=== PATIENT | male | born 1970 | race Caucasian/White ===

== ENCOUNTER 2017-10-13 10:22 | Emergency (ER) | payer BC ==
[2017-10-13 11:22] VITALS: BP 136/96
--- NOTE | 2017-10-13 12:11 | UC ---
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 ---full rom - History of Current Complaint Chief Complaint: UCUpperExtremity Stated Complaint: LEFT SHOULDER PAIN Time Seen by Provider: 10/13/17 12:03 Hx Obtained From: Patient Onset/Duration: Gradual Onset, Lasting Weeks - 12, Still Present Timing: Constant Pain Intensity: 7 Pain Scale Used: 0-10 Numeric Character: Aching, Throbbing Aggravating Factor(s): Movement Alleviating Factor(s): Nothing - numbing cream and ibuprofen Associated Signs And Symptoms: Positive: Negative Related History: Dominant Hand Right - Allergies/Home Medications Allergies/Adverse Reactions: Allergies Allergy/AdvReac Type Severity Reaction Status Date / Time No Known Allergies Allergy Verified 10/13/17 11:14 PMH/Surg Hx/FS Hx/Imm Hx Previously Healthy: Yes - Surgical History Surgical History: None - Family History Known Family History: Positive: None - Social History Occupation: Employed Full-time Lives: With Family Alcohol Use: Weekly Substance Use Type: Marijuana Substance Use Comment - Amount & Last Used: OCCASSIONALLY Smoking Status (MU): Heavy Every Day Tobacco Smoker Type: Cigarettes Amount Used/How Often: 1 PK DAILY Cessation Counseling: Counseled 3+Min - 10 Min Review of Systems Constitutional: Negative Skin: Negative Eyes: Negative ENT: Negative Respiratory: Negative Cardiovascular: Negative Gastrointestinal: Negative Genitourinary: Negative Motor: Negative Neurovascular: Negative Musculoskeletal: Arthralgia - left shoulder, Myalgia - left side of neck Neurological: Negative Psychological: Negative Is Patient Immunocompromised?: No All Other Systems Reviewed And Are Negative: Yes Physical Exam Triage Information Reviewed: Yes Appearance: Well-Appearing, No Pain Distress, Well-Nourished Vital Signs: Initial Vital Signs Temp 97.6 F 10/13/17 11:14 Pulse 87 10/13/17 11:14 Resp 16 10/13/17 11:14 BP 136/96 10/13/17 11:14 Pulse Ox 99 10/13/17 11:14 Vital Signs Reviewed: Yes Eye Exam: Normal Eyes: Positive: Conjunctiva Clear ENT Exam: Normal ENT: Positive: Normal ENT inspection, Hearing grossly normal. Negative: Trismus , Muffled voice, Hoarse voice Dental Exam: Normal Neck exam: Normal Neck: Positive: Supple, Nontender, Other: - muscles left side of neck Respiratory Exam: Normal Respiratory: Positive: Chest non-tender, Lungs clear, Normal breath sounds, No respiratory distress, No accessory muscle use Cardiovascular Exam: Normal Cardiovascular: Positive: RRR, No Murmur, Pulses Normal, Brisk Capillary Refill Musculoskeletal Exam: Normal Musculoskeletal: Positive: Strength Intact, ROM Intact, No Edema Neurological Exam: Normal Neurological: Positive: Alert, Muscle Tone Normal Psychological Exam: Normal Psychological: Positive: Normal Response To Family Skin Exam: Normal Diagnostics - Radiology No standard instances Xray Interpretation: No Acute Changes - Patient Name: JIMBO WRIGHT Medical Record# : [id number] Ordering Physician: Luz Hardy NP Acct.#: [id number] : 1970 Age: 47 Sex: M Location: [facility] Exam Date: 10/13/17 1217 ADM Status: REG ER Order Information: SP CERVICAL 4+VWS Accession Number: [id number] CPT: 44883 HISTORY: pain, left-sided neck pain COMPARISONS: None VIEWS: 5, Frontal , lateral, open-mouth odontoid, and bilateral oblique views of the cervical spine. FINDINGS: The cervical spine is visualized from the skull base through C7-T1. ALIGNMENT: There is straightening of the normal cervical lordosis. VERTEBRAL BODIES: There is multilevel anterolateral marginal osteophyte formation., Most pronounced at C5-C6. JOINTS: There is mild uncovertebral hypertrophy. Evaluation of the foramina is limited on the oblique views. INTERVERTEBRAL DISCS: There is diffuse loss of intervertebral disc height. SOFT TISSUE: The prevertebral soft tissues are normal. OTHER: The skull base is normal. The lung apices are clear. IMPRESSION: 1. STRAIGHTENING OF THE CERVICAL LORDOSIS. 2. DEGENERATIVE DISC DISEASE WITH MILD OSTEOARTHRITIS MOST PRONOUNCED AT C5-C6. __ <Electronically signed by Aung Castellon MD in OV> 10/13/17 1240 Dictated By: Aung Castellon MD Dictated Date/Time: 10/13/17 1240 Transcribed Date/Time: 10/13/17 1239 Copy to: CC:Luz Hardy NP; Nathalie Coats MD; No Primary Care Phys,NOPCP Imaging - [facility] Imaging - [facility] Imaging [facility] [id number] [place] [id number] [place] [id number] ph ) ph ([phone]) ph ([phone]) This report is only to be considered final once signed by the Provider(s) as displayed in the "< Electronically Signed by >" field (s). Absence of a signature indicates the report is in a draft status and still needs to be finalized. In the event this document was created by someone other than the signing Provider, the individual initiating the document will be listed in the "Entered by:" or "Dictated by:" shah. Patient Name: JIMBO WRIGHT Medical Record#: [id number] Ordering Physician: Luz Hardy NP Acct.#: [id number] : 1970 Age: 47 Sex: M Location: [facility] Exam Date: 10/13/17 1216 ADM Status: REG ER Order Information: SHOULDER LEFT 2+ VWS Accession Number : [id number] CPT: 66994 HISTORY: pain, left shoulder pain COMPARISONS: None VIEWS: 4, Frontal internal rotation, external rotation, outlet, and axillary views of the left shoulder FINDINGS: BONE DENSITY: Normal. BONES: There is no displaced fracture. JOINTS: There is mild osteoarthritis of the left AC joint. ALIGNMENT: There is no dislocation. SOFT TISSUES: Unremarkable. OTHER FINDINGS: None. IMPRESSION: NO ACUTE OSSEOUS INJURY. IF SYMPTOMS PERSIST, RECOMMEND REPEAT IMAGING. < Electronically signed by Aung Castellon MD in OV> 10/13/17 1248 Dictated By: Aung Castellon MD Dictated Date/Time: 10/13/17 1248 Transcribed Date/ Time: 10/13/17 1247 Copy to: CC:Luz Hardy NP; Nathalie Coats MD; No Primary Care Phys,NOPCP Imaging - [facility] Imaging - [facility] Imaging - [facility] [address] [address] ph [phone] ph ([phone]) ph ([phone]) This report is only to be considered final once signed by the Provider(s) as displayed in the "< Electronically Signed by >" field (s). Absence of a signature indicates the report is in a draft status and still needs to be finalized. In the event this document was created by someone other than the signing Provider, the individual initiating the document will be listed in the "Entered by:" or "Dictated by:" shah. Radiology Interpretation Completed By: ED Physician Shoulder Course/Dx - Course Assessment/Plan: add flexeril, lidoderm patches, continue NSAID, PT and orthopedic referal - Differential Dx/Diagnosis Provider Diagnoses: ddd cervical tyron, chronic left shoulder pain, nicotine dependent Discharge - Sign-Out/Discharge Documenting (check all that apply): Patient Departure - Discharge Plan Condition: Stable Disposition: HOME Prescriptions: Cyclobenzaprine TAB* [Flexeril 10 MG TAB*] 10 mg PO TID PRN #20 tab PRN Reason: muscle pain Lidocaine PATCH 5%* [Lidoderm 5% Patch*] 1 patch TRANSDERM DAILY #20 patch Patient Education Materials: Osteoarthritis (ED), Shoulder Pain (ED) Forms: *Work Release Referrals: [facility] PHYSICIAN REFERRAL [Outside] STEPHANIE Lyon [Medical Doctor] - - Billing Disposition and Condition Condition: STABLE Disposition: Home
--- NOTE | 2017-10-13 12:43 | RAD ---
HISTORY: pain, left-sided neck pain COMPARISONS: None VIEWS: 5, Frontal, lateral, open-mouth odontoid, and bilateral oblique views of the cervical spine. FINDINGS: The cervical spine is visualized from the skull base through C7-T1. ALIGNMENT: There is straightening of the normal cervical lordosis. VERTEBRAL BODIES: There is multilevel anterolateral marginal osteophyte formation., Most pronounced at C5-C6. JOINTS: There is mild uncovertebral hypertrophy. Evaluation of the foramina is limited on the oblique views. INTERVERTEBRAL DISCS: There is diffuse loss of intervertebral disc height. SOFT TISSUE: The prevertebral soft tissues are normal. OTHER: The skull base is normal. The lung apices are clear. IMPRESSION: 1. STRAIGHTENING OF THE CERVICAL LORDOSIS. 2. DEGENERATIVE DISC DISEASE WITH MILD OSTEOARTHRITIS MOST PRONOUNCED AT C5-C6.
--- NOTE | 2017-10-13 12:51 | RAD ---
HISTORY: pain, left shoulder pain COMPARISONS: None VIEWS: 4, Frontal internal rotation, external rotation, outlet, and axillary views of the left shoulder FINDINGS: BONE DENSITY: Normal. BONES: There is no displaced fracture. JOINTS: There is mild osteoarthritis of the left AC joint. ALIGNMENT: There is no dislocation. SOFT TISSUES: Unremarkable. OTHER FINDINGS: None. IMPRESSION: NO ACUTE OSSEOUS INJURY. IF SYMPTOMS PERSIST, RECOMMEND REPEAT IMAGING.
== END 2017-10-13 13:17 | disposition home or self-care (01) ==
LOC: UCCORT 10:22
DX: M25.512 Pain in left shoulder (principal); M50.322 Other cervical disc degeneration at C5-C6 level; Z71.6 Tobacco abuse counseling; F17.210 Nicotine dependence, cigarettes, uncomplicated
CPT/HCPCS: 72050; 99212; G0463

== ENCOUNTER 2018-02-23 10:33 | Observation (INO) | payer BC ==
[2018-02-23] MEDS ORDERED: oxyCODONE/Acetamin 5/325 MG* TAB PO ONE (11:20)
--- NOTE | 2018-02-23 11:28 | ED ---
Upper Extremity Pain - HPI Summary HPI Summary: A 47 y/o male presents to [facility] with a chief complaint left shoulder since about 01/29/18. He also c/o dry cough and left arm pain since about 01/29/18. He notes that he had x-rays done at [facility] which showed arthritis and degenerative disc disease. His reports that he has also lost his voice. A CT was taken on 02/23/16 revealing a mass on his lung that was pushing up towards his left shoulder. The patient takes ibuprofen and was given gabapentin since 02/22/18. - History of Current Complaint Chief Complaint: EDGeneral Stated Complaint: PAIN LEFT SHOULDER AND ARM Time Seen by Provider: 02/23/18 11:15 Hx Obtained From: Patient, Family/Sales And Service Associate Mechanism Of Injury: Other - mass on lung pushing up toward left shoulder Onset/Duration: Started Weeks Ago, Still Present Timing: Constant Severity Initially: Moderate Severity Currently: Moderate Pain Location: Shoulder - left Aggravating Factor(s): Nothing - Allergies/Home Medications Allergies/Adverse Reactions: Allergies Allergy/AdvReac Type Severity Reaction Status Date / Time No Known Allergies Allergy Verified 10/13/17 11:14 Home Medications: Home Medications Gabapentin 1 tab PO TID 02/23/18 [History Confirmed 02/23/18] PMH/Surg Hx/FS Hx/Imm Hx Endocrine/Hematology History: Denies: Hx Diabetes Cardiovascular History: Denies: Hx Coronary Artery Disease Sensory History: Denies: Hx Deafness Infectious Disease History: Unable to Obtain/Confirm Infectious Disease History: Denies: Traveled Outside the [place] in Last 30 Days - Family History Known Family History: Negative: Cardiac Disease, Hypertension, Diabetes - Social History Alcohol Use: Weekly Substance Use Type: Reports: Marijuana Substance Use Comment - Amount & Last Used: OCCASSIONALLY Smoking Status (MU): Heavy Every Day Tobacco Smoker Type: Cigarettes Amount Used/How Often: 1 PK DAILY Review of Systems Positive: Cough Positive: Arthralgia - left shoulder pain, Myalgia - left arm pain All Other Systems Reviewed And Are Negative: Yes Physical Exam - Summary Physical Exam Summary: Appearance: The patient is well-nourished in no acute distress and in no acute pain. Skin: The skin is warm and dry and skin color reflects adequate perfusion. HEENT: The head is normocephalic and atraumatic. The pupils are equal and reactive. The conjunctivae are clear and without drainage. Nares are patent and without drainage. Mouth reveals moist mucous membranes and the throat is without erythema and exudate. The external ears are intact. The ear canals are patent and without drainage. The tympanic membranes are intact. Neck: The neck is supple with full range of motion and non-tender. There are no carotid bruits. There is no neck vein distension. Respiratory: Chest is non-tender. Lungs are clear to auscultation and breath sounds are symmetrical and equal. Cardiovascular: Heart is regular rate and rhythm. There is no murmur or rub auscultated. There is no peripheral edema and pulses are symmetrical and equal. Abdomen: The abdomen is soft and non-tender. There are normal bowel sounds heard in all four quadrants and there is no organomegaly palpated. Musculoskeletal: There is no back tenderness noted. Extremities are non-tender. Left hand intrinsic muscles weak, flexors weak, extensors weak. There is good capillary refill 3 seconds. There is no peripheral edema or calf tenderness elicited. Neurological: Patient is alert and oriented to person, place and time. . Cranial nerves are grossly intact. Deep tendon reflexes are symmetrical and equal in all four extremities. Psychiatric: The patient has an appropriate affect and does not exhibit any anxiety or depression. Triage Information Reviewed: Yes Vital Signs On Initial Exam: Initial Vitals Temp Pulse Resp BP Pulse Ox 98.6 F 138 18 141/91 100 02/23/18 10:35 02/23/18 10:35 02/23/18 10:35 02/23/18 10:35 02/23/18 10:35 Vital Signs Reviewed: Yes Diagnostics - Vital Signs Vital Signs Temp Pulse Resp BP Pulse Ox 02/23/18 10:35 98.6 F 138 18 141/91 100 - Laboratory Result Diagrams: 02/23/18 12:46 02/23/18 12:46 Lab Statement: Any lab studies that have been ordered have been reviewed, and results considered in the medical decision making process. - EKG 12:58 Cardiac Rate: Tachycardia - 113 bpm EKG Rhythm: Sinus Tachycardia Summary of EKG Findings: Sinus tachycardia, normal ST, no ectopy, no STEMI Course/Dx - Course Course Of Treatment: I spoke with [facility] client relations specialist for oncology who requested that the hospitalists admit the patient for a more thorough w/u and likely radiation treatment. - Diagnoses Provider Diagnoses: Lung cancer - Physician Notifications Discussed Care of Patient With: [facility] Time Discussed With Above Provider: 11:55 Instructed by Provider To: Other - Discussed CT findings Discharge - Sign-Out/Discharge Documenting (check all that apply): Patient Departure - admit - Discharge Plan Condition: Fair Disposition: ADMITTED TO [facility] - Billing Disposition and Condition Condition: FAIR Disposition: Admitted to [facility] - Attestation Statements Document Initiated by Heribertoibe: Yes Documenting Scribe: Damian Roman Provider For Whom Heribertoibe is Documenting (Include Credential): Mo Schumacher MD Scribe Attestation: I, Damian Roman, scribed for Mo Schumacher MD on 02/23/18 at 1425. Scribe Documentation Reviewed: Yes Provider Attestation: The documentation as recorded by the Damian leslie accurately reflects the service I personally performed and the decisions made by me, Mo Schumacher MD Status of Scribe Document: Viewed Consult Consult: At 12:00 Dr. Baig accepted the pt for admission.
[2018-02-23] MEDS ORDERED: LORazepam INJ* 2 MG/ML 1 ML VIAL IV PUSH ONE (12:39)
[2018-02-23] MEDS ORDERED: Acetaminophen TAB* 325 MG PO PRN (12:39)
[2018-02-23] MEDS ORDERED: Ondansetron INJ* 2 MG/ML VIAL IV PRN (12:39)
[2018-02-23] MEDS ORDERED: NS 0.9% 1000 ML* 1,000 ML IV SCH (12:45)
[2018-02-23 12:56] LABS: ABS Basophils 0 10^3/ul (0-0.2); ABS Eosinophils 0.1 10^3/ul (0-0.6); ABS Lymphocytes 2.1 10^3/ul (1.0-4.8); ABS Neutrophils 5.9 10^3/ul (1.5-7.7); ABS Nucleated RBC 0 10^3/ul; Eosinophil % 0.9 %; Hematocrit 41 % (42-52); Hemoglobin 13.9 g/dl (14.0-18.0); Lymphocyte % 22.8 %; Mean Corpuscular HGB Conc 34 g/dl (31-36); Mean Corpuscular Hemoglobin 32 pg (27-31); Mean Corpuscular Volume 95 fL (80-94); Mean Platelet Volume 7.1 fL (7.4-10.4); Nucleated Red Blood Cells % 0; Platelet Count 299 10^3/ul (150-450); Red Blood Count 4.35 10^6/ul (4.00-5.40); Red Cell Distribution Width 14 % (10.5-15)
[2018-02-23 13:10] LABS: INR 1.1 (0.77-1.02)
[2018-02-23] MEDS ORDERED: Iohexol 300* (CONTRAST) 10 ML SDV IV ONE (14:00)
[2018-02-23] MEDS: Gabapentin CAP(*) 300 MG PO SCH ×2 (14:12→20:13)
[2018-02-23] MEDS: Nicotine PATCH 21 MG/24 HR* PATCH TRANSDERM SCH (14:13)
[2018-02-23] MEDS: Morphine VIAL* 4 MG/ML VIAL (1 ml vial) IV PRN ×2 (14:14→19:22)
--- NOTE | 2018-02-23 16:54 | CONSULT ---
Consultation - Reason for Consultation Reason for Consultation: Left pleural based lung mass Ordering Provider: Tae Pacheco Chief Complaint: Neck Pain History of Present Illness: "It all started in August when my scapular area kind of ached. But then I started waking up in the middle of the night with the pain so I didn't wait to long to get it looked at." Started PT 1-2x/week which initially appeared to help, however then he developed spasms and was seen at urgent care in September. At that time an x-ray revealed DJD and OA. He was prescribed Flexeril which seemed to help for a little bit. "In October I started having tingling of my hand and I told the PT I needed to see an orthopedic doctor." Seen in [facility] in December at which time he had developed weakness with his hand shake and Dr. Palomo recommended an MRI of his cervical spine to evaluate for impingement. Unfortunately he was unable to lay still for this due to back spasms even with valium for second attempt. At that time he was referred to a fur glosser, Dr. Rodriguez, who was unable to see him for 5 weeks. During this time his notes he developed a weak, soft voice which he felt initially was a chest cold. He feels this started approximately 8 weeks ago, at the same time he had a dry cough and frequent clearing of his throat. He has lost 15 lbs since December but he had initially felt this was related to having his bottom teeth extracted. He was seen by Dr. Rodriguez yesterday who prescribed gabapentin and ordered a CT of the neck. This revealed a concerning mass and he was referred to the ER where he was admitted by the hospitalist team. At this time he notes discomfort in his left arm extending from the axilla to the hand occurring intermittently with severe 'spasms' and he has to lay or sit in specific positions to find comfort. His strength has significantly diminished and he can tell there is a difference in how the hand looks. There has not been significant change in the last two weeks. Allergies/Medications Medication: Home Medications Medication Instructions Recorded Confirmed Type Gabapentin 1 tab PO TID 02/23/18 02/23/18 History Allergies/Adverse Reactions: Allergies Allergy/AdvReac Type Severity Reaction Status Date / Time No Known Allergies Allergy Verified 10/13/17 11:14 History - Past Medical History Hx Arthritis: Yes - told on x-ray in September that he had OA - Family History Hx Family Cancer: No Hx Family Cerebrovascular Accident: No Hx Family Cardiac Disorders: No Hx Family Diabetes: No Other Family History: mother COPD - Social History Hx Alcohol Use: Yes - increased over last several months related to pain Hx Tobacco Use: Yes - 1 ppd x30 years Occupation/School: [employer] Marital Status: Number of Children: son, 21 yo Review of Systems - Review of Systems Constitutional Symptoms: Positive: Weight Loss Dermatology: Positive: Normal HEENT: Positive: Dental Problems - lower teeth extracted Oct, Other - hoarse voice, clears throat Eyes: Positive: Normal Thyroid: Positive: Normal Pulmonary: Positive: Cough Cardiology: Positive: Normal, Chest Pain - rare Gastroenterology: Positive: Normal Genital - Urinary: Positive: Normal Musculoskeletal: Positive: Other - left shoulder and neck pain with weakness of left hand Endocrinology: Positive: Normal Neurology: Positive: Normal Psychiatry: Positive: Normal Physical Exam - Physical Exam Physical Examination: A&Ox3, EOMI, neuro grossly non-focal Hoarse voice with occ. clearing of throat, communicating clearly and involved in care Oropharynx clear Enlargement of left supraclavicular region without distinct mass, no obvious enlarged nodes to cervical, clavicular, or axillary regions No enlarged veins of the chest or neck HRR, S1S2, no murmur or thrill noted LS +wheeze bilat. with increased bronchial breath sounds L>R +BS, abd. soft and non-tender Left arm notably weaker than right without full driver guard, +muscle wasting and limited AROM Spooning of fingernails without cyanosis +PP=bilat., no edema Results - Lab Results Lab Results: 02/23/18 02/23/18 02/23/18 12:46 12:46 12:46 WBC 9.0 RBC 4.35 Hgb 13.9 L Hct 41 L MCV 95 H MCH 32 H MCHC 34 RDW 14 Plt Count 299 MPV 7.1 L Neut % (Auto) 65.1 Lymph % (Auto) 22.8 Bureau % (Auto) 11.0 Eos % (Auto) 0.9 Baso % (Auto) 0.2 Absolute Neuts (auto) 5.9 Absolute Lymphs (auto) 2.1 Absolute Monos (auto) 1.0 H Absolute Eos (auto) 0.1 Absolute Basos (auto) 0 Absolute Nucleated RBC 0 Nucleated RBC % 0 INR (Anticoag Therapy) 1.10 H Sodium 137 Potassium 3.9 Chloride 104 Carbon Dioxide 28 Anion Gap 5 BUN 21 Creatinine 0.95 Est GFR ( Amer) 102.8 Est GFR (Non-Af Amer) 85.0 BUN/Creatinine Ratio 22.1 H Glucose 106 H Calcium 9.5 - Cardiology EKG: EKG INTERPRETATION ECG Report Patient Name JIMBO WRIGHT Birthdate 1970 Sex M Order Number [id number] Date of ECG 02/23/2018 12:58:27 Interpretation Sinus tachycardia.rate> 99 ST elev, probable normal early repol pattern.ST elevation, age<55 Borderline prolonged QT interval.QTc >475mS Baseline wander in lead(s) II - BORDERLINE ECG - ECG NEEDS E-SIGNING This report is only to be considered final once signed by the Provider(s) as displayed in the "<Electronically Signed by >" field (s). Absence of a signature indicates the report is in a draft status and still needs to be finalized. In the event this document was created by someone other than the signing Provider, the individual initiating the document will be listed in the "Entered by:" or "Dictated by:" shah. Please go to [email or web address] website to view the EKG image - Radiology Radiology Results: Patient Name: JIMBO WRIGHT Medical Record#: [id number] Ordering Physician: Tae Pacheco INSPECTOR CASING Acct.#: [id number] : 1970 Age: 47 Sex: M Location: [address] [place] [address] - MEDICAL Exam Date: 02/23/18 1239 ADM Status: ADM Carlos Order Information: CT SOFT TISSUE NECK W Accession Number: [id number] CPT: 00748 Indication: Weight loss, tumor noted on cervical spine imaging. Contrast: 50 mL of Omnipaque 300 was given according to hospital. CT of the soft tissue neck was performed after IV contrast administration. Coronal and sagittal reconstructed images were obtained. Soft tissue masses noted in the left apex of lung field extending to the superior mediastinum. There is encasement of the left common carotid artery and left subclavian artery and likely extends into the brachial plexus. Heterogeneously enhancing masses noted in the brachial plexus. Erosion of the T2 vertebra is noted. Inferior thyroid lobes are unremarkable. The remainder of the neck demonstrates no evidence of abnormal masses. Parotid glands are within normal limits. IMPRESSION: Ill-defined mass pleural-based in the left apex extending into the prevertebral space and mediastinum with encasement of the left common carotid artery and left subclavian artery and likely extending into the left brachial plexus. Erosion of the T2 vertebra and T3 vertebra is noted. <Electronically signed by Ngoc Escobedo MD in [place]> 02/23/181548 Dictated By: Ngoc Escobedo MD Dictated Date/Time: 02/23/181548 Transcribed Date/Time: 02/23/181543 Patient Name: JIMBO WRIGHT Medical Record#: [id number] Ordering Physician: Tae Pacheco INSPECTOR CASING Acct.#: [id number] : 1970 Age: 47 Sex: M Location: [address] [place] [address] - MEDICAL Exam Date: 02/23/181238 ADM Status: ADM Carlos Order Information: CT CHEST/ABD/PEL W Accession Number: [id number] CPT: 89824 INDICATION: Weight loss, tumor noted on CT of the cervical spine imaging. COMPARISON: There are no relevant prior studies available for comparison. TECHNIQUE: A CT scan of the chest, abdomen and pelvis was performed with intravenous and with oral contrast following intravenous injection of 97 ml of Omnipaque 300 nonionic contrast. Contiguous axial sections were obtained from the lung apices through the symphysis pubis. Images were reconstructed in the coronal and sagittal planes. FINDINGS: LUNGS: There is an infiltrating mass present at the left lung apex which involves the adjacent mediastinum and neck surrounding the left common, vertebral and subclavian arteries and abutting the left lateral margin of the trachea which is slightly displaced toward the right side. No other enlarged mediastinal or hilar lymph nodes are seen. No enlarged axillary lymph nodes are noted. There is a small 5 mm groundglass nodule in the superior segment of the left lower lobe best seen on axial image #31. No other nodular densities are seen. There is mild to moderate centrilobular and paraseptal emphysematous change. No pleural effusion is present. MEDIASTINUM: As noted above. HEART: The heart is within normal limits in size. No pericardial effusion is present. THORACIC AORTA: The thoracic aorta is normal in caliber and demonstrates homogeneous contrast opacification. LIVER: The liver is normal in size. No significant focal abnormality is seen. GALLBLADDER: No calcified gallstones are seen. BILE DUCTS: No intra or extrahepatic ductal distention is seen. SPLEEN: The spleen is normal in size without significant focal abnormality. PANCREAS: The pancreas is normal in size. No ductal distention or calcifications are seen. ADRENAL GLANDS: The right adrenal gland appears normal. There is a heterogeneous hypodense possibly necrotic mass involving the left adrenal gland measuring 6.5 x 3.4 x 2.8 cm. KIDNEYS: The kidneys are normal in size. No renal calculi or hydronephrosis is seen. No significant focal renal abnormality is seen. AORTA: The aorta is normal in caliber with mild calcific plaque present. LYMPH NODES: No significantly enlarged lymph nodes are seen. BOWEL: The stomach, small and large bowel appear nondistended. The appendix appears to be within normal limits. There are scattered diverticula within the colon. There is no This report is only to be considered final once signed by the Provider(s) as displayed in the "<Electronically Signed by >" field (s). Absence of a signature indicates the report is in a draft status and still needs to be finalized. In the event this document was created by someone other than the signing Provider, the individual initiating the document will be listed in the "Entered by:" or "Dictated by:" shah. 1 of 2 Assessment and Plan Impression: 47 yo male in generally good health with 30 pack year smoking history presenting with 6 months of progressive pain and decreased function of the left arm and shoulder found to have large left upper lobe mass extending to the brachial plexus and encompassing surrounding vascular system, without compression. Discussed with Mr. Wright and family that the mass and his personal history are concerning for lung cancer, however lymphoma is in the differential. I have a high suspicion for metastatic non-small cell lung cancer though a biopsy will be required in order to identify the origin and subsequent treatments. Further information is difficult to provide at this time. I did review the concern for potential compression of vital arteries and consideration for radiation dependent on cell line as well. At this time I do not think we need to pursue urgent radiation as he feels his symptoms have been stable for the last two weeks and there is no evidence for decreased circulation at this time. Plan: Recommend biopsy, palpable mass to the left supraclavicular region may be ammendable to FNA as radiological images reveal a matted mass just behind clavicle. Will discuss with pathology in AM. Radiology images personally reviewed. Case discussed with hospitalist, radiologist, and attending.
[2018-02-23] MEDS: Nicotine Patch Removal NOTE PATCH OFF SCH (20:14)
--- NOTE | 2018-02-23 20:27 | HP ---
HISTORY AND PHYSICAL: DATE OF ADMISSION: 02/23/18 PRIMARY CARE PROVIDER: None. ATTENDING PHYSICIAN WHILE IN THE HOSPITAL: Dr. Zenaida Baig * (report dictated by Tae Pacheco NP). CONSULTING ONCOLOGIST: Dr. Miller. CHIEF COMPLAINT: 1. Left arm numbness. 2. Left shoulder pain. HISTORY OF PRESENT ILLNESS: Mr. Mccauley is a 47-year-old male patient who prior today had no medical problems with the exception of tobacco abuse. He presented initially in August, I am unsure as to which provider he presented in August, but he presented in August with complaints of shoulder pain. He started out having physical therapy, which was not really helping the pain. He then got referral to Orthopedics. They were concerned when they evaluated him because he was having some numbness and tingling into his arm. They tried twice to get an MRI of the cervical spine. The patient was unable to do this because any time he laid down he was having spasms. He was then referred to Dr. Rodriguez who saw the patient yesterday. 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 He does state that he has had progressive worsening weakness in his hand. He says he cannot make a fist, he cannot open the fist, he can barely move his fingers. He has no feeling in his fifth finger and in his ring finger, which has been getting progressively worse over the last couple of months. He does admit to having weight loss of about 15 pounds. He does admit to having a dry cough. He denies any tarry stools or any bloody stools and he does admit to decreased appetite. No fevers, chills, chest pain, or shortness of breath was reported. He again on the outpatient setting had a cervical spine CT done, which did show a large soft tissue mass involving the left upper lobe. The patient at that point was referred to the hospital given the fact that there was a tumor that appeared to be a capsule in the carotid and the left subclavian artery and he was sent to the ED, he was evaluated, and we were asked to evaluate for admission. PAST MEDICAL HISTORY: He denied. PAST SURGICAL HISTORY: He has had left hand surgery. HOME MEDICATIONS: Include gabapentin 1 tablet p.o. t.i.d. ALLERGIES TO MEDICATIONS: Include no known drug allergies. FAMILY HISTORY: His mother had COPD and [place]. Father's history is unknown. SOCIAL HISTORY: He is a smoker for about 30 years. He occasionally drinks alcohol. He did smoke a pack a day. He is . Surrogate decision maker is his friend, Basilia, and his son. REVIEW OF SYSTEMS: There is no documented fever. He does admit to a significant weight change. He denies having any double vision. He denies having any ear discharge. He denied having any rhinorrhea. There was no sore throat. No thyroid enlargement. He denied any chest pain. There was no orthopnea. There was no nocturnal dyspnea. He denied having any abdominal pain. He denies any nausea or vomiting. No dysuria, no frequency. There was no seizure. There was no loss of consciousness. No pruritus and no skin ulcerations. Review of 14 systems completed, all others were negative. PHYSICAL EXAMINATION GENERAL: At this time, Mr. Mccauley is a 47-year-old male patient; he is sitting in the ED stretcher. He does not appear to be in any acute distress. He appears to be well nourished and well developed. VITAL SIGNS: Blood pressure 141/91 with a pulse of 138, respirations are 18, his O2 sat is 100%, temperature 98.6. His heart rate now is 110. HEENT: Head atraumatic and normocephalic. Eyes: EOMs intact. Sclerae anicteric and not pale. Throat: Oral mucosa appears to be moist. No oropharyngeal erythema. NECK: Supple. LUNGS: Clear to auscultation bilaterally. There were no wheezes, rales, or rhonchi. HEART: Sounds S1, S2. He had a regular rate and rhythm. He is tachycardic. ABDOMEN: Soft, flat, nontender. Bowel sounds were present. EXTREMITIES: Pulses were 2+ throughout. He is moving all 4 extremities with 5/ 5 strength. NEUROLOGICAL: He is awake, he is alert, he is oriented x3. He had no gross focal deficits. SKIN: Intact. LABORATORY DATA/DIAGNOSTIC STUDIES: Today pending. So far, I have a CBC, which shows a WBC of 9.0, RBC of 4.35, hemoglobin of 13.9, hematocrit of 41, his platelet count was 299. 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 There is likely extension to the brachial plexus and erosion of the T2 vertebra. Old medical records were reviewed. ASSESSMENT AND PLAN: Mr. Mccauley is a 47-year-old male patient coming into the ED today with complaints of left shoulder pain, numbness, and radiculopathy and neuropathy of the left upper extremity. He will be admitted under observation status for: 1. Left shoulder pain secondary to neuropathy. At this point, again I suspect this is probably secondary to compression due to the tumor noted in his left upper lobe. At this point, we will need to workup that tumor, concern for Pancoast tumor. I did touch base with Dr. Miller. I suspect the majority of his symptoms is pain and findings on clinical exam are secondary to that tumor. Dr. Miller did recommend a CT of the neck. In addition to this, CTA of the chest and a CT abdomen and pelvis to start and they will be evaluating him. We will need to try to get tumor sampling, but I would like to further imaging to see if there was a more approachable spot to obtaining sampling for pathology purposes and at this point again, Oncology has been asked to evaluate and we will continue to follow. I have also ordered OT and PT for the patient as well. For the pain, I have ordered p.r.n. morphine and I will continue his gabapentin. 2. Fluids, electrolytes, and nutrition. He can have a regular diet. 3. DVT prophylaxis. I have ordered SCDs. 4. Code status. Full code. TIME SPENT: Time spent on the admission was 60 minutes; greater than half the time was spent [id number] with the patient obtaining my history and physical, other half of the time spent going over the plan of care with the patient and implementing plan of care. I did discuss the plan of care with my attending, Dr. Baig; she is in agreement. TAE PACHECO NP [id number]/[facility] #: [id number] [facility] AREA HOSPITALAudra
[2018-02-24] MEDS: Morphine VIAL* 4 MG/ML VIAL (1 ml vial) IV PRN ×4 (00:40→19:31)
[2018-02-24 05:40] LABS: ABS Basophils 0.1 10^3/ul (0-0.2); ABS Eosinophils 0.2 10^3/ul (0-0.6); ABS Monocytes 0.9 10^3/ul (0-0.8); ABS Neutrophils 5.2 10^3/ul (1.5-7.7); ABS Nucleated RBC 0 10^3/ul; Eosinophil % 1.8 %; Hematocrit 40 % (42-52); Hemoglobin 13.6 g/dl (14.0-18.0); Lymphocyte % 23.9 %; Mean Corpuscular HGB Conc 34 g/dl (31-36); Mean Corpuscular Hemoglobin 32 pg (27-31); Mean Corpuscular Volume 95 fL (80-94); Mean Platelet Volume 7.5 fL (7.4-10.4); Nucleated Red Blood Cells % 0; Platelet Count 279 10^3/ul (150-450); Red Blood Count 4.23 10^6/ul (4.00-5.40); Red Cell Distribution Width 14 % (10.5-15); White Blood Count 8.3 10^3/ul (3.5-10.8)
[2018-02-24 05:47] LABS: INR 1.08 (0.77-1.02)
[2018-02-24 05:58] LABS: EGFR Non-African American 115.2 (>60)
--- NOTE | 2018-02-24 08:30 | PN ---
Progress Note - Progress Note Date of Service: 02/24/18 SOAP: Subjective: []Pain is a little better on Neurontin. He is breathing fine. No cough. Has change in voice. Acetaminophen (Tylenol Tab*) 650 mg PO Q4H PRN PRN Reason: FEVER/PAIN Gabapentin (Neurontin Cap(*)) 300 mg PO TID [facility] Last Admin: 02/23/18 20:13 Dose: 300 mg Morphine Sulfate (Morphine Vial*) 4 mg IV Q4H PRN PRN Reason: PAIN - MILD Last Admin: 02/24/18 00:40 Dose: 4 mg Morphine Sulfate (Ms Contin(*)) 15 mg PO Q12H [facility] Nicotine (Nicotine Patch 21 Mg/24 Hr*) 1 patch TRANSDERM DAILY [facility] Last Admin: 02/23/18 14:13 Dose: 1 patch Ondansetron HCl (Zofran Inj*) 4 mg IV Q6H PRN PRN Reason: NAUSEA Pharmacy Profile Note (Nicotine Patch Removal Note*) 1 note PATCH OFF 2100 [facility] Last Admin: 02/23/18 20:14 Dose: Not Given Objective: [] Vital Signs Temp Pulse Resp BP Pulse Ox 98.4 F 108 18 110/69 99 02/24/18 03:29 02/24/18 03:29 02/24/18 03:29 02/24/18 03:29 02/24/18 03:29 HEENT: Mucosa moist, fulness in shoulder. No axillary LAD CTA, decreased BS RRR +BS NT ND + clubbing Neuro- weakness left hand, 2/5, some atrophy. Assessment: []47 year old with what appears to be pancoast tumor KIRILL. Tumor extension around vessels and causing brachial plexus syndrome. CT scan with additional isolated left adrenal mass. Ddx: lung cancer as most likely, could be upper thoracic tumor, lymphoma possible but not likely. Discussed possible diagnosis of lung cancer, metastatic vs localized. Therapy will be XRT to apical mass with systemic therapy guided by biopsy results. Plan: []1. Will plan CT guided biopsy of adrenal mass. If positive will establish histology and stage. 2. CT contrast of head 3 Continue gabapentin and add Morphine ER 15 mg po bid. 4. Will discuss case with XRT today. May hold on consultation until pathology resulted. 5. Plan discharge with pain control.
[2018-02-24] MEDS: Morphine TAB Extended Release (*) 15 MG TAB.ER PO SCH ×2 (08:35→19:30)
[2018-02-24] MEDS: Gabapentin CAP(*) 300 MG PO SCH ×3 (08:35→19:30)
[2018-02-24] MEDS: Nicotine PATCH 21 MG/24 HR* PATCH TRANSDERM SCH (08:36)
[2018-02-24] MEDS ORDERED: fentaNYL* 50 MCG/ML 2 ML VIAL (100 MCG VIAL) ONE (10:34)
[2018-02-24] MEDS ORDERED: Iohexol 300* (CONTRAST) 10 ML SDV IV ONE (12:54)
--- NOTE | 2018-02-24 18:31 | PN ---
Subjective Date of Service: 02/24/18 Interval History: Pt is doing ok. He states he is taking it one day at a time. He states the pain in his L arm is generally improved from when he presented to the hospital. He describes the pain as sharp shooting at times an other times just burning/ itching. That alone is helping him sleep. He does not feel like he needs anything for anxiety or sleep at this time. He wonders about the results of the CT brain. Objective Active Medications: Acetaminophen (Tylenol Tab*) 650 mg PO Q4H PRN PRN Reason: FEVER/PAIN Gabapentin (Neurontin Cap(*)) 300 mg PO TID [facility] Last Admin: 02/24/18 13:25 Dose: 300 mg Morphine Sulfate (Morphine Vial*) 4 mg IV Q4H PRN PRN Reason: PAIN - MILD Last Admin: 02/24/18 13:26 Dose: 4 mg Morphine Sulfate (Ms Contin(*)) 15 mg PO Q12H [facility] Last Admin: 02/24/18 08:35 Dose: 15 mg Nicotine (Nicotine Patch 21 Mg/24 Hr*) 1 patch TRANSDERM DAILY [facility] Last Admin: 02/24/18 08:36 Dose: 1 patch Ondansetron HCl (Zofran Inj*) 4 mg IV Q6H PRN PRN Reason: NAUSEA Pharmacy Profile Note (Nicotine Patch Removal Note*) 1 note PATCH OFF 2100 [facility] Last Admin: 02/23/18 20:14 Dose: Not Given Vital Signs - 8 hr 02/24/18 02/24/18 02/24/18 10:48 12:55 13:25 Temperature 99.7 F 99.8 F Pulse Rate 103 120 Respiratory 18 18 14 Rate Blood Pressure 127/83 128/87 (mmHg) O2 Sat by Pulse 98 100 Oximetry 02/24/18 02/24/18 02/24/18 13:26 15:27 15:28 Temperature Pulse Rate Respiratory 16 14 14 Rate Blood Pressure (mmHg) O2 Sat by Pulse Oximetry Oxygen Devices in Use Now: None Appearance: Middle aged male who appears older than his stated age, sitting up in bed, NAD Eyes: No Scleral Icterus Ears/Nose/Mouth/Throat: Mucous Membranes Moist Respiratory: Symmetrical Chest Expansion and Respiratory Effort, Clear to Auscultation Cardiovascular: NL Sounds; No Murmurs; No JVD, RRR, No Edema Abdominal: NL Sounds; No Tenderness; No Distention Extremities: No Clubbing, Cyanosis, - - L arm atrophied compared to R Skin: No Nodules or Sclerosis Neurological: Alert and Oriented x 3 Result Diagrams: 02/24/18 05:31 02/24/18 05:31 Assess/Plan/Problems-Billing Mr Mccauley is a 47 yo M who has a h/o tobacco abuse who presented to the ER after having a CT scan for L shoulder/arm pain and was found to have a left lung mass. - Patient Problems (1) Pancoast tumor of left lung Current Visit: Yes Status: Acute Code(s): C34.12 - MALIGNANT NEOPLASM OF UPPER LOBE, LEFT BRONCHUS OR LUNG SNOMED Code(s): 680563217 Comment: Likely primary lung cancer with adrenal and brain metastases. Adrenal biopsy done today. Await pathology report. Await further recommendations from oncology. (2) Left arm pain Current Visit: Yes Status: Acute Code(s): M79.602 - PAIN IN LEFT ARM SNOMED Code(s): 135922130 Comment: Continue MS contin 15mg BID, add prn percocet and continue prn morphine for severe pain. Continue gabapentin. Pain is secondary to the tumor. (3) DVT prophylaxis Current Visit: Yes Status: Acute Code(s): FRZ3810 - SNOMED Code(s): 158683102 Comment: ambulation (4) Full code status Current Visit: Yes Status: Acute Code(s): Z78.9 - OTHER SPECIFIED HEALTH STATUS SNOMED Code(s): 410479117
[2018-02-24] MEDS: Nicotine Patch Removal NOTE PATCH OFF SCH (20:14)
[2018-02-25] MEDS: Morphine VIAL* 4 MG/ML VIAL (1 ml vial) IV PRN (06:27)
[2018-02-25] MEDS: oxyCODONE/Acetamin 5/325 MG* TAB PO PRN ×2 (06:28→10:49)
[2018-02-25 06:46] LABS: EGFR Non-African American 96.6 (>60)
[2018-02-25 08:11] VITALS: BP 106/82
[2018-02-25] MEDS: Gabapentin CAP(*) 300 MG PO SCH (08:58)
[2018-02-25] MEDS: Morphine TAB Extended Release (*) 15 MG TAB.ER PO SCH (08:58)
[2018-02-25] MEDS: Nicotine PATCH 21 MG/24 HR* PATCH TRANSDERM SCH (08:59)
--- NOTE | 2018-02-25 10:04 | PN ---
Progress Note - Progress Note Date of Service: 02/25/18 SOAP: Subjective: []Pain a little better. Dealing with new diagnosis and starting to understand. Some swelling in arm, no [place]. Acetaminophen (Tylenol Tab*) 650 mg PO Q4H PRN PRN Reason: FEVER/PAIN Gabapentin (Neurontin Cap(*)) 300 mg PO TID [facility] Last Admin: 02/25/18 08:58 Dose: Not Given Morphine Sulfate (Morphine Vial*) 4 mg IV Q4H PRN PRN Reason: PAIN - MILD Last Admin: 02/25/18 06:27 Dose: 4 mg Morphine Sulfate (Ms Contin(*)) 15 mg PO Q12H [facility] Last Admin: 02/25/18 08:58 Dose: 15 mg Nicotine (Nicotine Patch 21 Mg/24 Hr*) 1 patch TRANSDERM DAILY [facility] Last Admin: 02/25/18 08:59 Dose: 1 patch Ondansetron HCl (Zofran Inj*) 4 mg IV Q6H PRN PRN Reason: NAUSEA Oxycodone/Acetaminophen (Percocet 5/325 Tab*) 1 tab PO Q4H PRN PRN Reason: PAIN Last Admin: 02/25/18 06:28 Dose: 1 tab Pharmacy Profile Note (Nicotine Patch Removal Note*) 1 note PATCH OFF 2100 [facility] Last Admin: 02/24/18 20:14 Dose: Not Given Objective: [] Vital Signs Temp Pulse Resp BP Pulse Ox 98.7 F 116 18 106/82 98 02/25/18 08:11 02/25/18 08:11 02/25/18 08:58 02/25/18 08:11 02/25/18 08:11 HEENT: Mucosa moist, fulness in shoulder. No axillary LAD CTA, decreased BS RRR +BS NT ND + clubbing, +1 edema LUE Neuro- weakness left hand, 2/5, some atrophy. Bx: first read c/w malignancy in adrenal gland. CT head 4 mm LFL lesion, edema Assessment: []47 year old with what appears to be pancoast tumor KIRILL. Tumor extension around vessels and causing brachial plexus syndrome. CT scan with additional left adrenal mass, 4 mm GRADUATE STUDENT lesion. Ddx: lung cancer as most likely, could be upper thoracic tumor, lymphoma possible but not likely. Discussed diagnosis of lung cancer, metastatic. Will need to adress GRADUATE STUDENT, likely gamma knife and XRT to KIRILL mass. Systemic therapy will depend on pathology, hope to have some results on Tuesday. Plan: []1. Will discharge home today. 2. Pain: - Continue Morphine ER 15 mg bid and PRN oxycodone. - Increase Gabapentin to 600 mg po bid. 2. RTC on at 13:00 3. Dex 4 mg am and last afternoon. 4. Will discuss case with XRT, tumor board on Tue.
--- NOTE | 2018-02-25 11:31 | DS ---
DISCHARGE SUMMARY: DATE OF ADMISSION: 02/23/18 DATE OF DISCHARGE: 02/25/18 DISCHARGE DIAGNOSES: 1. Metastatic lung cancer, Pancoast tumor. 2. Central nervous system lesion. 3. Brachial plexus syndrome. HOSPITAL COURSE: Please see history and physical for details of presentation. He was admitted for refractory pain in the left arm. CT scan of chest, abdomen , and pelvis also revealed a left-sided adrenal mass and CT of the head with contrast showed a 4-mm left frontal lobe lesion. He had the adrenal mass biopsied, preliminary results are consistent with malignancy. He was started on gabapentin and MS Contin for the pain, which have improved his symptoms. Still 6/10 in intensity as a base pain level. Extensive discussions with the patient about the new diagnosis of metastatic lung cancer, though we avoided a specific prognosis. Plan will be to discharge home today and then follow up in clinic on Tuesday when we have pathology. 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 DISCHARGE MEDICATIONS: 1. Dexamethasone 4 mg in the morning and then at mid afternoon. 2. Gabapentin 600 mg p.o. b.i.d. 3. Morphine 15 mg p.o. b.i.d. 4. Oxycodone 5 mg q.4 p.r.n. FOLLOWUP: 1. He will follow up with me Tuesday at 1 p.m. to review pathology. 2. He would like a DNR/DNI, we will work on that before he goes home today. [id number]/[facility] #: [id number] M[facility] IMOGEN[facility] BASSETT HOSPITALAudra
== END 2018-02-25 11:33 | disposition home or self-care (01) ==
LOC: ED 10:33 → MED 12:35
PROVIDERS: ADMIT Hospitalist; ATTEND Hospitalist
DX: C34.12 Malignant neoplasm of upper lobe, left bronchus or lung (principal); R90.0 Intracranial space-occupying lesion found on diagnostic imaging of central nervous system; G54.0 Brachial plexus disorders; M79.602 Pain in left arm; M54.2 Cervicalgia
CPT/HCPCS: 36415; 50200; 70470; 70491; 71260; 74177; 76775; 77012; 80048; 80053; 85025; 85610; 93005; 99217; 99226; 99284; A9270-GY; G0378; J2060; J2270; J3010; Q9967

== ENCOUNTER 2018-04-26 14:01 | Inpatient (IN) | payer BC ==
[2018-04-26] MEDS ORDERED: Ondansetron INJ* 2 MG/ML VIAL IV PRN (14:28)
[2018-04-26] MEDS ORDERED: Enoxaparin(*) 40 MG/0.4 ML SYR SUBCUT SCH (15:00)
[2018-04-26] MEDS: Morphine VIAL* 10 MG/ML 1 ML VIAL IV PRN ×2 (15:06→20:10)
[2018-04-26] MEDS: NS 0.9% 1000 ML** 1,000 ML IV SCH ×2 (15:08→21:34)
[2018-04-26] MEDS ORDERED: oxyCODONE/Acetamin 5/325 MG* TAB PO PRN (15:40)
[2018-04-26] MEDS ORDERED: Vancomycin per Pharmacy* NOTE FOLLOW UP PRN (15:51)
[2018-04-26] MEDS: Gabapentin CAP(*) 300 MG PO SCH (20:10)
[2018-04-26] MEDS: Nystatin SUSPENSION* 100000 UNITS/ML 5 ML UDC PO SCH (20:10)
[2018-04-26] MEDS: Dexamethasone TAB* 4 MG PO SCH (20:10)
[2018-04-26] MEDS: Vancomycin(*) 1,000 MG in NS 0.9% 250 ML* 250 ML IVPB SCH (21:33)
[2018-04-26] MEDS: Morphine TAB Extended Release (*) 30 MG TAB.ER PO SCH (21:33)
[2018-04-26] MEDS: Nicotine PATCH 14 MG/24 HR* PATCH TRANSDERM SCH (23:59)
[2018-04-27] MEDS: Vancomycin(*) 1,000 MG in NS 0.9% 250 ML* 250 ML IVPB SCH ×3 (05:55→22:06)
[2018-04-27 06:25] LABS: ABS Basophils 0 10^3/ul (0-0.2); ABS Eosinophils 0 10^3/ul (0-0.6); ABS Lymphocytes 0.1 10^3/ul (1.0-4.8); ABS Monocytes 0.1 10^3/ul (0-0.8); ABS Neutrophils 4.7 10^3/ul (1.5-7.7); ABS Nucleated RBC 0 10^3/ul; Eosinophil % 0.1 %; Hematocrit 35 % (42-52); Hemoglobin 11.9 g/dl (14.0-18.0); Lymphocyte % 1.2 %; Mean Corpuscular HGB Conc 34 g/dl (31-36); Mean Corpuscular Hemoglobin 34 pg (27-31); Mean Corpuscular Volume 100 fL (80-94); Mean Platelet Volume 7.4 fL (7.4-10.4); Nucleated Red Blood Cells % 0.1; Platelet Count 172 10^3/ul (150-450); Red Blood Count 3.53 10^6/ul (4.00-5.40); Red Cell Distribution Width 17 % (10.5-15); White Blood Count 4.9 10^3/ul (3.5-10.8)
[2018-04-27 06:44] LABS: Albumin 2.6 g/dL (3.2-5.2); Albumin/Globulin Ratio 1.1 (1-3); Calcium 8.4 mg/dL (8.6-10.3); EGFR African American 214.7 (>60); EGFR Non-African American 177.5 (>60); Globulin 2.4 g/dL (2-4); Potassium 3.5 mmol/L (3.5-5.0); Total Bilirubin 0.4 mg/dL (0.2-1.0)
[2018-04-27] MEDS: Nicotine PATCH 14 MG/24 HR* PATCH TRANSDERM SCH (08:02)
[2018-04-27] MEDS: Gabapentin CAP(*) 300 MG PO SCH ×3 (08:02→22:10)
[2018-04-27] MEDS: Nystatin SUSPENSION* 100000 UNITS/ML 5 ML UDC PO SCH ×4 (08:02→22:10)
[2018-04-27] MEDS: Morphine TAB Extended Release (*) 30 MG TAB.ER PO SCH ×3 (08:03→22:10)
[2018-04-27] MEDS: Dexamethasone TAB* 4 MG PO SCH ×2 (08:03→22:11)
--- NOTE | 2018-04-27 09:02 | PN ---
Progress Note - Progress Note Date of Service: 04/27/18 SOAP: Subjective: feels a little better than yesterday, however arm definitely more blistered. no BM in 2 days but feels ok about this. pain definitely present but he feels controlled well enough Objective: Vital Signs Temp Pulse Resp BP Pulse Ox 97.9 F 82 16 110/69 95 04/27/18 07:56 04/27/18 07:56 04/27/18 08:03 04/27/18 07:56 04/27/18 07:56 sitting up in some discomfort perr eomi mild rhonchi, clear with cough s1 s2 nl soft nt +bs no le edema massive left arm edema, skin blistering, erythema, warmth, purple hand, warm fingers good pulse A+O x 3 Laboratory Results - last 24 hr 04/27/18 04/27/18 05:36 05:36 WBC 4.9 RBC 3.53 L Hgb 11.9 L Hct 35 L MCV 100 H MCH 34 H MCHC 34 RDW 17 H Plt Count 172 MPV 7.4 Neut % (Auto) 96.1 Lymph % (Auto) 1.2 [place] % (Auto) 2.5 Eos % (Auto) 0.1 Baso % (Auto) 0.1 Absolute Neuts (auto) 4.7 Absolute Lymphs (auto) 0.1 L Absolute Monos (auto) 0.1 Absolute Eos (auto) 0 Absolute Basos (auto) 0 Absolute Nucleated RBC 0 Nucleated RBC % 0.1 Sodium 137 Potassium 3.5 Chloride 105 Carbon Dioxide 27 Anion Gap 5 BUN 18 Creatinine 0.50 L Est GFR ( Amer) 214.7 Est GFR (Non-Af Amer) 177.5 BUN/Creatinine Ratio 36.0 H Glucose 123 H Calcium 8.4 L Total Bilirubin 0.40 AST 24 ALT 33 Alkaline Phosphatase 45 Total Protein 5.0 L Albumin 2.6 L Globulin 2.4 Albumin/Globulin Ratio 1.1 Dexamethasone (Decadron Tab*) 4 mg PO BID [facility] Last Admin: 04/27/18 08:03 Dose: 4 mg Enoxaparin Sodium (Lovenox(*)) 40 mg SUBCUT Q24H [facility] Last Admin: 04/26/18 15:06 Dose: 40 mg Gabapentin (Neurontin Cap(*)) 900 mg PO TID [facility] Last Admin: 04/27/18 08:02 Dose: 900 mg Sodium Chloride (Ns 0.9% 1000 Ml) 1,000 mls @ 125 mls/hr IV PER RATE [facility] Last Admin: 04/26/18 21:34 Dose: 125 mls/hr Vancomycin HCl 1,000 mg/ (Sodium Chloride) 250 mls @ 166.667 mls/hr IVPB Q8HR JACQUE; Protocol Last Admin: 04/27/18 05:55 Dose: 166.667 mls/hr Morphine Sulfate (Morphine Vial*) 5 mg IV Q2H PRN PRN Reason: PAIN Last Admin: 04/26/18 20:10 Dose: 5 mg Morphine Sulfate (Ms Contin(*)) 60 mg PO TID [facility] Last Admin: 04/27/18 08:03 Dose: 60 mg Nicotine (Nicotine Patch 14 Mg/24 Hr*) 1 patch TRANSDERM DAILY [facility] Last Admin: 04/27/18 08:02 Dose: 1 patch Nystatin (Nystatin Suspension*) 500,000 units PO QID [facility] Stop: 05/03/18 17:10 Last Admin: 04/27/18 08:02 Dose: 500,000 units Ondansetron HCl (Zofran Inj*) 4 mg IV Q4H PRN PRN Reason: NAUSEA/VOMITING Oxycodone/Acetaminophen (Percocet 5/325 Tab*) 1 tab PO Q4H PRN PRN Reason: PAIN Pharmacy Consult (Vancomycin Per Pharmacy*) 1 note FOLLOW UP . 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 Plan: -cont IV vanco -cont NS hydration -will attempt doppler if possible, prophylactic lovenox for now -wound consult -ok to proceed with RT as need to attempt to shrink tumor to improve lymphedema. will hold chemo given active infection -cont long acting narcotic and PRN short acting -add senna for bowels -add KCL 20 meq daily and check mag -DNR
[2018-04-27 09:30] LABS: Magnesium 1.9 mg/dL (1.9-2.7)
[2018-04-27] MEDS: Potassium Chlor TAB* 20 MEQ TAB.ER PO SCH (09:57)
[2018-04-27] MEDS: NS 0.9% 1000 ML** 1,000 ML IV SCH ×2 (11:19→23:18)
[2018-04-27] MEDS: Morphine VIAL* 4 MG/ML VIAL (1 ml vial) IV PRN ×2 (11:19→19:38)
[2018-04-27] MEDS: Enoxaparin(*) 80 MG/0.8 ML SYR SUBCUT SCH ×2 (11:19→22:10)
[2018-04-27] MEDS ORDERED: Nicotine Patch Removal NOTE PATCH OFF SCH (21:00)
[2018-04-27] MEDS ORDERED: Senna TAB PO SCH (21:00)
[2018-04-28] MEDS ORDERED: Vancomycin Trough Check NOTE FOLLOW UP ONE (05:30)
[2018-04-28] MEDS: Morphine VIAL* 4 MG/ML VIAL (1 ml vial) IV PRN ×2 (06:04→10:36)
[2018-04-28 06:25] LABS: ABS Basophils 0 10^3/ul (0-0.2); ABS Eosinophils 0 10^3/ul (0-0.6); ABS Lymphocytes 0.1 10^3/ul (1.0-4.8); ABS Monocytes 0.2 10^3/ul (0-0.8); ABS Neutrophils 5.5 10^3/ul (1.5-7.7); ABS Nucleated RBC 0 10^3/ul; Eosinophil % 0.1 %; Hematocrit 34 % (42-52); Hemoglobin 11.8 g/dl (14.0-18.0); Lymphocyte % 2.1 %; Mean Corpuscular HGB Conc 35 g/dl (31-36); Mean Corpuscular Hemoglobin 34 pg (27-31); Mean Corpuscular Volume 99 fL (80-94); Mean Platelet Volume 7.3 fL (7.4-10.4); Nucleated Red Blood Cells % 0.1; Platelet Count 153 10^3/ul (150-450); Red Blood Count 3.43 10^6/ul (4.00-5.40); Red Cell Distribution Width 17 % (10.5-15); White Blood Count 5.8 10^3/ul (3.5-10.8)
[2018-04-28 06:41] LABS: BUN/Creatinine Ratio 27.1 (8-20); Calcium 8.6 mg/dL (8.6-10.3); EGFR African American 225.1 (>60); Potassium 3.8 mmol/L (3.5-5.0)
[2018-04-28] MEDS: Vancomycin(*) 1,000 MG in NS 0.9% 250 ML* 250 ML IVPB SCH (06:59)
[2018-04-28] MEDS: Dexamethasone TAB* 4 MG PO SCH (08:12)
[2018-04-28] MEDS: Potassium Chlor TAB* 20 MEQ TAB.ER PO SCH (08:13)
[2018-04-28] MEDS: Gabapentin CAP(*) 300 MG PO SCH ×2 (08:13→13:12)
[2018-04-28] MEDS: Nicotine PATCH 14 MG/24 HR* PATCH TRANSDERM SCH (08:13)
[2018-04-28] MEDS: Nystatin SUSPENSION* 100000 UNITS/ML 5 ML UDC PO SCH ×2 (08:13→13:12)
[2018-04-28] MEDS: Morphine TAB Extended Release (*) 30 MG TAB.ER PO SCH ×2 (08:13→13:12)
[2018-04-28] MEDS: Enoxaparin(*) 80 MG/0.8 ML SYR SUBCUT SCH (10:36)
[2018-04-28] MEDS ORDERED: Vancomycin(*) 1,250 MG in NS 0.9% 250 ML* 250 ML IVPB SCH (12:00)
[2018-04-28 12:24] VITALS: BP 115/71
--- NOTE | 2018-04-28 20:30 | DS ---
CC: Dr. Miller * DISCHARGE SUMMARY: DATE OF ADMISSION: 04/26/18 DATE OF DISCHARGE: 04/28/18 PRIMARY ONCOLOGIST: Dr. Boris Miller. ATTENDING PHYSICIAN: Dr. Rasheed.* (DICTATED BY SANDRA GA) DISCHARGING PROVIDER: Ten FLORES. PRIMARY DISCHARGE DIAGNOSES: 1. Sepsis secondary to cellulitis of the left upper extremity. 2. Left upper extremity deep vein thrombosis. 3. Non-small cell lung cancer, metastatic with COMPUTED TOMOGRAPHY TECHNICIAN disease with a large Pancoast tumor at the left apex impinging on the brachial plexus and subclavian vein with associated left upper extremity pain, reduced range of motion and edema. 4. Thrush. DISCHARGE MEDICATIONS: 1. Dexamethasone 4 mg p.o. twice daily. 2. Gabapentin 900 mg p.o. 3 times daily. 3. Morphine sulfate 60 mg p.o. 3 times daily. 4. Eliquis 10 mg twice daily x1 week followed by 5 mg twice daily. 5. Keflex 500 mg p.o. 3 times daily x10 days. 6. Nystatin 500,000 units swish and spit 4 times daily. 7. Oxycodone/acetaminophen 1 tablet p.o. q.4 hours as needed for pain. HOSPITAL IMAGING: A venous Doppler demonstrates occlusive thrombus at the left internal jugular vein and visualized cephalic vein at the upper arm, which is new when compared to the 04/10/18 ultrasound. HOSPITAL COURSE: This is a 48-year-old gentleman with a metastatic non-small cell lung cancer with a large tumor at the left apex of the lung with brachial plexus impingement and subclavian vein compression who has started concurrent chemotherapy and radiation. He presented to the oncology clinic for chemotherapy with complaints of increased pain and erythema in his left upper extremity and noted fever on exam. The patient reported that he had had increased pain and swelling with erythema that had started 4 or 5 days prior. The skin began to blister and weep serous fluid. He became extremely fatigued and was feeling poorly at home for a couple of days, but did not have any measured fevers at that time. On initial evaluation, the patient had bright red erythema of the entire left upper extremity and appeared lethargic. He was initially hypotensive and tachycardic and received a fluid bolus, collected blood cultures and started empirically on vancomycin for left upper extremity cellulitis. Venous Doppler was performed of the left upper extremity, which has previously been negative, but on this occasion was positive for a large thrombus extending through the internal jugular and cephalic vein. The patient was subsequently started on Lovenox during his hospitalization and tolerated this well. He remained afebrile throughout the rest of his hospitalization and the pain in his arm subsided with appropriate treatment. He had significant serous drainage from the blisters of his left arm, which was wrapped with a dry gauze and ABD pad for additional absorption. DISPOSITION AND FOLLOWUP PLAN: The patient is being discharged to home with medications as outlined above. He will complete 10 days of Keflex for his cellulitis and started on Eliquis for his upper extremity DVT. The patient will continue with daily radiation treatments and will follow up with Dr. Miller next week, at which it will be determined at what point he resumes chemotherapy. SANDRA [place] [id number]/[facility] #: [id number] GORAN
[2018-04-29] MEDS ORDERED: Vancomycin Trough Check NOTE FOLLOW UP ONE (11:30)
== END 2018-04-28 13:40 | disposition home or self-care (01) | DRG 720 ==
LOC: MEDTELE 14:35
PROVIDERS: ADMIT Internal Medicine Hematology & Oncology; ATTEND Internal Medicine Hematology & Oncology
DX: A41.9 Sepsis, unspecified organism (principal); L03.114 Cellulitis of left upper limb; I82.C12 Acute embolism and thrombosis of left internal jugular vein; I82.622 Acute embolism and thrombosis of deep veins of left upper extremity; C79.31 Secondary malignant neoplasm of brain; C34.90 Malignant neoplasm of unspecified part of unspecified bronchus or lung; B37.9 Candidiasis, unspecified; Z66 Do not resuscitate; F17.210 Nicotine dependence, cigarettes, uncomplicated; M19.90 Unspecified osteoarthritis, unspecified site; Z79.1 Long term (current) use of non-steroidal anti-inflammatories (NSAID); Z79.891 Long term (current) use of opiate analgesic; Z79.899 Other long term (current) drug therapy; Z82.5 Family history of asthma and other chronic lower respiratory diseases
CPT/HCPCS: 36415; 80048; 80053; 80202; 83735; 85025; 99223; 99239; A9270-GY; J1650; J2270; J3370; J8540

== ENCOUNTER 2018-05-15 10:53 | Inpatient (IN) | payer BC ==
[2018-05-15] MEDS ORDERED: Albuterol/Ipratropium NEB.SOL* Albuterol 2.5 MG/Ipratropium 0.5 MG 3 ML INH PRN (11:06)
[2018-05-15] MEDS ORDERED: Piperacillin/Tazobac ADVAN(*) 3.375 GM in NS 0.9% 100 ML* 100 ML IVPB ONE (11:06)
--- NOTE | 2018-05-15 11:11 | ED ---
Shortness of Breath - HPI Summary HPI Summary: Pt is a 48 y/o M presenting to the ED brought in by EMS for increased shortness of breath that is normal but worsened between yesterday and today. When EMS arrived, his O2 was in the 70s. Pt has experienced weakness, fatigue, and sob. Per pts relative, he has a hx of lung cancer that has metastasized; he is on chemotherapy and radiation, his last tx was 05/10/18. He has an old infection of his L forearm due to blood clot, and he is a smoker. - History of Current Complaint Chief Complaint: EDShortnessOfBreath Time Seen by Provider: 05/15/18 10:59 Hx Obtained From: Patient, Family/Hand Bootmaker Onset/Duration: Gradual Onset, Lasting Days, Still Present Timing: Constant Current Severity: Moderate Dyspnea At: Rest Aggrevating Factors: Nothing Alleviating Factors: Oxygen - Allergy/Home Medications Allergies/Adverse Reactions: Allergies Allergy/AdvReac Type Severity Reaction Status Date / Time No Known Allergies Allergy Verified 04/04/18 06:24 PMH/Surg Hx/FS Hx/Imm Hx Previously Healthy: No Endocrine/Hematology History: Denies: Hx Diabetes Cardiovascular History: Denies: Hx Coronary Artery Disease, Hx Hypertension, Hx Pacemaker/ICD Respiratory History: Reports: Hx Lung Cancer Denies: Hx Asthma, Hx Chronic Obstructive Pulmonary Disease (COPD) History: Denies: Hx Renal Disease Musculoskeletal History: Reports: Hx Arthritis - told on x-ray in September that he had OA Sensory History: Denies: Hx Contacts or Glasses, Hx Deafness, Hx Hearing Aid Opthamlomology History: Denies: Hx Contacts or Glasses Psychiatric History: Denies: Hx Panic Disorder - Cancer History Cancer Type, Location and Year: LUNG CA Hx Chemotherapy: Yes - Last treatment was last week per patient. - Surgical History Surgery Procedure, Year, and Place: 1986, HAND LAC REPAIR Infectious Disease History: No Infectious Disease History: Denies: Traveled Outside the [place] in Last 30 Days - Family History Known Family History: Negative: Cardiac Disease, Hypertension, Diabetes - Social History Alcohol Use: Occasionally Substance Use Type: Reports: None Substance Use Comment - Amount & Last Used: OCCASSIONALLY Hx Tobacco Use: Yes - 1 ppd x30 years Smoking Status (MU): Heavy Every Day Tobacco Smoker Type: Cigarettes Amount Used/How Often: 1 PK DAILY Review of Systems Positive: Fatigue. Negative: Fever Positive: Shortness Of Breath Positive: Weakness All Other Systems Reviewed And Are Negative: Yes Physical Exam - Summary Physical Exam Summary: Appearance:mild distress Skin: warm, dry, reflects adequate perfusion Head/face: normal Eyes: EOMI, CATHLEEN ENT: normal Neck: supple, non-tender Respiratory: Mild shortness of breath, bilateral rhonchi, Cardiovascular: Tachycardic, pulses symmetrical Abdomen: non-tender, soft Musculoskeletal: swollen L forearm with erythematous with ulcers forearm Neuro: normal, sensory motor intact, A&Ox3 Triage Information Reviewed: Yes Vital Signs On Initial Exam: Initial Vitals Temp Pulse Resp BP Pulse Ox 98.6 F 145 22 73/47 92 05/15/18 10:58 05/15/18 10:58 05/15/18 10:58 05/15/18 10:58 05/15/18 10:58 Vital Signs Reviewed: Yes Diagnostics - Vital Signs Vital Signs Temp Pulse Resp BP Pulse Ox 05/15/18 10:58 98.6 F 145 22 73/47 92 - Laboratory Result Diagrams: 05/15/18 11:15 05/15/18 11:15 Lab Statement: Any lab studies that have been ordered have been reviewed, and results considered in the medical decision making process. - Radiology Chest x-ray Radiology Interpretation Completed By: Radiologist Summary of Radiographic Findings: Progression of multifocal consolidation of right lung. ED physician has reviewed this report. - EKG 1115 Cardiac Rate: Tachycardia - 115bpm EKG Rhythm: Sinus Tachycardia ST Segment: Normal Ectopy: None Course/Dx - Course Course Of Treatment: Pt is a 48 y/o M presenting to the ED brought in by EMS for shortness of breath increased over the last two days. Pt has a hx of lung cancer that has metastasized, and reports sob, fatigue, and weakness. He denies COPD or asthma, or any O2 use at home. He is a smoker. Chest x-ray reveals progression of multifocal consolidation of the right lung. Spoke with Dr. Miller of oncology who will be admitting the patient. The pt is agreeable with this plan. The dx includes septic shock, pneumonia, lung cancer, cellulitis of L arm , and neutropenia. - Diagnoses Differential Diagnosis/HQI/PQRI: Positive: Bronchitis, Pneumonia, Other - septic shock/cellulitis lf arm Provider Diagnoses: Septic shock, Pneumonia, Lung cancer, Cellulitis of left arm, Neutropenia - Critical Care Time Critical Care Time: 30-74 min - 40 minutes Discharge - Sign-Out/Discharge Documenting (check all that apply): Patient Departure - Discharge Plan Condition: Stable Disposition: ADMITTED TO [facility] Referrals: [facility] PHYSICIAN REFERRAL [Outside] - Billing Disposition and Condition Condition: STABLE Disposition: Admitted to [facility] - Attestation Statements Document Initiated by Scribe: Yes Documenting Scribe: Yulia Cruz Provider For Whom Ernie is Documenting (Include Credential): Brian Dalton MD. Scribe Attestation: Yulia Ribeiro, scribed for Brian Dalton MD. on 05/15/18 at 1405. Scribe Documentation Reviewed: Yes Provider Attestation: The documentation as recorded by the scribe, Yulia Cruz accurately reflects the service I personally performed and the decisions made by Brian akhtar MD. Status of Scribe Document: Viewed Consult Consult: 1227 - Spoke with Dr. Miller of oncology who will be admitting the pt to [facility].
[2018-05-15] MEDS ORDERED: Vancomycin(*) 1,000 MG - ED ONCE IVPB ONE ×2 (11:15)
[2018-05-15] MEDS: Lactated Ringers 1000 ML Bag* 1,000 ML IV.FLUID IV ONE ×3 (11:33→13:55)
[2018-05-15 11:51] LABS: ALT 31 U/L (7-52); Albumin 2.7 g/dL (3.2-5.2); Albumin/Globulin Ratio 0.7 (1-3); Alkaline Phosphatase 37 U/L (34-104); BUN/Creatinine Ratio 32.9 (8-20); Blood Urea Nitrogen 49 mg/dL (6-24); CO2 Carbon Dioxide 23 mmol/L (22-32); Calcium 8.9 mg/dL (8.6-10.3); Chloride 100 mmol/L (101-111); EGFR African American 60.9 (>60); EGFR Non-African American 50.3 (>60); Globulin 3.8 g/dL (2-4); Glucose 97 mg/dL (70-100); Sodium 134 mmol/L (135-145); Total Protein 6.5 g/dL (6.4-8.9)
[2018-05-15 11:52] LABS: Hematocrit 31 % (42-52); Hemoglobin 10.3 g/dl (14.0-18.0); Mean Corpuscular HGB Conc 33 g/dl (31-36); Mean Corpuscular Hemoglobin 34 pg (27-31); Mean Corpuscular Volume 103 fL (80-94); Mean Platelet Volume 9.5 fL (7.4-10.4); Platelet Count 66 10^3/ul (150-450); Red Blood Count 3.02 10^6/ul (4.00-5.40); Red Cell Distribution Width 19 % (10.5-15); White Blood Count 0.2 10^3/ul (3.5-10.8)
[2018-05-15 11:53] LABS: Troponin I 0.03 ng/mL (<0.04)
[2018-05-15] MEDS ORDERED: Vancomycin(*) 1,000 MG VIAL IVPB SCH (12:00)
[2018-05-15 12:07] LABS: Activated Partial Thrombo Time 38.8 seconds (26.0-36.3); INR 1.59 (0.77-1.02)
[2018-05-15] MEDS ORDERED: oxyCODONE/Acetamin 5/325 MG* TAB PO ONE (12:09)
[2018-05-15 12:27] LABS: Anion Gap 11 mmol/L (2-11)
[2018-05-15] MEDS ORDERED: Cefepime 2 GM in Dextrose(*) 2 GM/50 ML BAG IV ONE (12:29)
[2018-05-15 12:49] LABS: Lymphocytes % 8 %; Metamyelocytes % 6 % (0-2); Monocytes % 10 %; Neutrophil % 61 %
[2018-05-15 12:50] LABS: Immature Granulocytes 20 % (0-9); Variant Lymph % 1 % (0-6)
[2018-05-15 12:54] LABS: ABS Neutrophils 0.16 10^3/ul (1.5-7.7)
[2018-05-15 13:11] LABS: C Reactive Protein 683.01 mg/L (<8.01)
[2018-05-15] MEDS ORDERED: oxyCODONE/Acetamin 5/325 MG* TAB PO PRN (13:30)
[2018-05-15] MEDS ORDERED: Morphine TAB Extended Release (*) 30 MG TAB.ER PO SCH (14:00)
[2018-05-15] MEDS ORDERED: Iodixanol* (CONTRAST) 320 MG/ML 100 ML SDV IV ONE (14:03)
[2018-05-15] MEDS ORDERED: fentaNYL* 50 MCG/ML 2 ML VIAL (100 MCG VIAL) IV SLOW PU ONE (15:07)
[2018-05-15] MEDS: Gabapentin CAP(*) 300 MG PO SCH ×2 (15:13→20:34)
[2018-05-15 15:27] LABS: Potassium Redraw 4.1 mmol/L (3.5-5.0)
[2018-05-15] MEDS: Cefepime 2 GM in Dextrose(*) 2 GM/50 ML BAG IV SCH ×2 (15:54→23:14)
[2018-05-15] MEDS: NS 0.9% 1000 ML** 1,000 ML IV SCH ×2 (16:00→23:14)
[2018-05-15] MEDS ORDERED: NS 0.9% 500 ML* 500 ML IV ONE (16:57)
[2018-05-15 17:30] LABS: Urine Appearance Cloudy; Urine Bacteria Absent (Absent); Urine Bilirubin Negative (Negative); Urine Blood 3+ (Negative); Urine Color Yellow; Urine Glucose Negative (Negative); Urine Ketones Negative (Negative); Urine Nitrite Negative (Negative); Urine Protein 1+(30 mg/dL) (Negative); Urine Red Blood Cell 1+(3-5/hpf) (Absent); Urine Squamous Epithelial Cell Present (Absent); Urine Urobilinogen Negative (Negative); Urine White Blood Cell Absent (Absent)
[2018-05-15] MEDS ORDERED: Heparin DRIP 25,000 UNITS(*) 25,000 UNITS/500 ML BAG IV SCH (17:30)
[2018-05-15] MEDS: fentaNYL* 50 MCG/ML 2 ML VIAL (100 MCG VIAL) IV SLOW PU PRN ×3 (17:30→22:30)
[2018-05-15] MEDS: Sucralfate TAB* 1 GM PO SCH (17:31)
[2018-05-15] MEDS: Nystatin SUSPENSION* 100000 UNITS/ML 5 ML UDC PO SCH ×2 (17:31→20:36)
[2018-05-15] MEDS ORDERED: Heparin VIAL(*) 5000 UNITS/ML VIAL (FIVE THOUSAND) IV SCH (18:00)
[2018-05-15] MEDS: Nicotine PATCH 21 MG/24 HR* PATCH TRANSDERM SCH (18:48)
--- NOTE | 2018-05-15 19:53 | HP ---
HISTORY AND PHYSICAL: DATE OF ADMISSION: 05/15/18 CHIEF COMPLAINT: Shortness of breath and lethargy. HISTORY OF PRESENTING COMPLAINT: The patient is a 48-year-old gentleman with a past medical history significant for stage IV lung cancer, status post chemotherapy. The patient presented to the emergency department today with increasing shortness of breath. He reports that the shortness of breath started yesterday and has progressively gotten worse. In the emergency department, the patient was noted to be hypoxic with O2 saturations in the 70s. He also was noted to be hypotensive. He improved in his saturations and hypotension with IV fluids and supplemental oxygen. At the time of my evaluation, the patient states that he was feeling much better. He states that other than the shortness of breath, he did not have any other complaints such as cough or sputum production. He does have anorexia, with poor oral intake and fluid intake. He denies any fevers at home; however, was noted to be febrile in the emergency room and in the ICU. He is currently being treated for lymphedema of his left hand secondary to tumor involvement in his neck. There is redness and changes consistent with cellulitis of his left arm for which he has been evaluated and is currently on treatment. He also was noted to have a DVT during his past admission and was on anticoagulation with Eliquis; however, he states that he ran out of the medication 2 to 3 days ago. PAST MEDICAL HISTORY: Stage IV lung cancer, currently undergoing chemotherapy. History of pulmonary embolus with neck mass, poor oral intake, cancer, and osteoarthritis. CURRENT MEDICATIONS: Include: 1. Dexamethasone. 2. Gabapentin. 3. MS Contin. 4. Nystatin. 5. Oxycodone. ALLERGIES: No known drug allergies. PHYSICAL EXAMINATION GENERAL: Middle-aged male, no obvious distress. Awake, alert, oriented, answering questions appropriately. HEENT: Mucous membranes pink and moist. Anicteric, acyanotic. LUNGS: Clear to auscultation with mild crackles at the bases. Good air entry. CARDIOVASCULAR: S1, S2 regular. ABDOMEN: Soft, nontender. EXTREMITIES: Left arm has significant swelling with redness and skin appears to be sloughing. NEUROLOGICAL: Awake, alert, oriented. DIAGNOSTIC STUDIES/LAB DATA: Laboratory workup was reviewed. Neutropenic with a white cell count of 0.2, hemoglobin 10.3, hematocrit of 31, platelets 66. Sodium 134, potassium 4.1, chloride 100, bicarb 23, BUN 49, creatinine 1.49. LFTs within normal limits. ASSESSMENT AND PLAN: 1. Stage IV lung cancer, status post chemotherapy. Neutropenic fever, currently on cefepime and received a dose of vancomycin. Blood cultures have been sent. Sputum cultures pending. 2. History of DVT/pulmonary embolism. We will start on heparin infusion. We will discuss with oncologist regarding low platelets. 3. Neutropenia/thrombocytopenia likely secondary to chemotherapy. Continue on neutropenic precautions. Oncologist aware. 4. Chronic pain related to cancer. We will initiate fentanyl p.r.n. 5. Hypotension, improved with IV fluids, likely related to dehydration. I have also taken a consent for central line placement in case a central line needs to be placed. 6. Disposition. The patient is DNR/DNI. [id number]/[facility] #: [id number] MTDD
[2018-05-15] MEDS: Dexamethasone TAB* 4 MG PO SCH (20:35)
[2018-05-16] MEDS: fentaNYL* 50 MCG/ML 2 ML VIAL (100 MCG VIAL) IV SLOW PU PRN ×5 (00:24→11:32)
[2018-05-16 06:00] LABS: Hematocrit 28 % (42-52); Hemoglobin 9.2 g/dl (14.0-18.0); Mean Corpuscular HGB Conc 34 g/dl (31-36); Mean Corpuscular Hemoglobin 35 pg (27-31); Mean Corpuscular Volume 103 fL (80-94); Mean Platelet Volume 8.1 fL (7.4-10.4); Platelet Count 14 10^3/ul (150-450); Red Blood Count 2.68 10^6/ul (4.00-5.40); Red Cell Distribution Width 18 % (10.5-15); White Blood Count 0.2 10^3/ul (3.5-10.8)
[2018-05-16 06:37] LABS: Albumin 2.2 g/dL (3.2-5.2); Albumin/Globulin Ratio 0.7 (1-3); BUN/Creatinine Ratio 56.3 (8-20); Calcium 7.9 mg/dL (8.6-10.3); EGFR African American 143.3 (>60); EGFR Non-African American 118.4 (>60); Globulin 3.1 g/dL (2-4); Magnesium 2.4 mg/dL (1.9-2.7); Potassium 3.5 mmol/L (3.5-5.0); Total Bilirubin 0.5 mg/dL (0.2-1.0); Total Protein 5.3 g/dL (6.4-8.9)
[2018-05-16] MEDS: Sucralfate TAB* 1 GM PO SCH ×3 (06:38→17:03)
[2018-05-16] MEDS: Cefepime 2 GM in Dextrose(*) 2 GM/50 ML BAG IV SCH ×2 (07:55→18:36)
[2018-05-16] MEDS: Nicotine PATCH 21 MG/24 HR* PATCH TRANSDERM SCH (07:55)
[2018-05-16] MEDS: Gabapentin CAP(*) 300 MG PO SCH ×3 (07:57→21:32)
[2018-05-16] MEDS: Nystatin SUSPENSION* 100000 UNITS/ML 5 ML UDC PO SCH ×4 (07:57→21:32)
[2018-05-16] MEDS: Dexamethasone TAB* 4 MG PO SCH (07:57)
[2018-05-16 13:26] LABS: Influenza A Molecular NEGATIVE (Negative); Influenza B Molecular NEGATIVE (Negative)
[2018-05-16] MEDS: Morphine PCA ADULT* 5 MG/ML 30 ML PCA SCH (14:03)
[2018-05-16] MEDS ORDERED: Morphine VIAL* 4 MG/ML VIAL (1 ml vial) IV ONE (14:24)
[2018-05-16 18:14] LABS: Hematocrit 31 % (42-52); Hemoglobin 10.4 g/dl (14.0-18.0); Mean Corpuscular HGB Conc 34 g/dl (31-36); Mean Corpuscular Hemoglobin 35 pg (27-31); Mean Corpuscular Volume 103 fL (80-94); Mean Platelet Volume 9.3 fL (7.4-10.4); Platelet Count 9 10^3/ul (150-450); Red Blood Count 3.01 10^6/ul (4.00-5.40); Red Cell Distribution Width 19 % (10.5-15); White Blood Count 0.4 10^3/ul (3.5-10.8)
[2018-05-16 19:29] VITALS: BP 112/69
[2018-05-17] MEDS: Morphine PCA ADULT* 5 MG/ML 30 ML PCA SCH ×2 (05:23→19:50)
[2018-05-17] MEDS: Gabapentin CAP(*) 300 MG PO SCH ×3 (09:00→21:33)
[2018-05-17] MEDS: Nystatin SUSPENSION* 100000 UNITS/ML 5 ML UDC PO SCH ×4 (09:00→23:11)
[2018-05-17] MEDS: Nicotine PATCH 21 MG/24 HR* PATCH TRANSDERM SCH (09:02)
--- NOTE | 2018-05-17 11:22 | PN ---
Progress Note - Progress Note Date of Service: 05/17/18 SOAP: Subjective: [Reports that he is feeling better this am. Pain is controlled with morphine. Dyspnea is mild. Eating some.] Objective: [ Laboratory Results - last 24 hr 05/15/18 05/15/18 05/16/18 11:15 11:38 13:15 WBC RBC Hgb Hct MCV MCH MCHC RDW Plt Count MPV Hem Pathologist Commnt INR (Anticoag Therapy) 1.59 H APTT 38.8 H Influenza A (Rapid) Negative Influenza B (Rapid) Negative 05/16/18 18:01 WBC 0.4 L RBC 3.01 L Hgb 10.4 L Hct 31 L MCV 103 H MCH 35 H MCHC 34 RDW 19 H Plt Count 9 L* D MPV 9.3 Hem Pathologist Commnt INR (Anticoag Therapy) APTT Influenza A (Rapid) Influenza B (Rapid) Vital Signs: Temp Pulse Resp BP Pulse Ox 98.4 F 122 20 112/69 91 05/16/18 16:50 05/16/18 16:51 05/17/18 09:00 05/16/18 16:51 05/16/18 16:51 Exam: Gen: Ill appearing, but alert and accompanied by family in NAD HEENT: mildly dry MM CV: RRR Resp: diffuse rhonchi Ext: severe edema of LUE with extensive wounds] Assessment: [48 yo male with metastatic NSCLC with severe LUE edema secondary to venous compression secondary to tumor compression at the level of the subclavian vein who presented with severe sepsis secondary to PNA with severe pancytopenia secondary to chemotherapy who made the decision to transition to comfort measures yesterday.] Plan: [1. Severe sepsis with polymicrobial bacteremia secondary to PNA with acute respiratory failure - comfort measures: maintain morphine drip for pain/dyspnea control, prn nebulizers and oxygen support 2. Metastatic NSCLC 3. Pancytopenia 4. LUE DVT - anticoagulation discontinued 5. LUE wound - dressings as tolerated for comfort Dispo: prognosis is likely 1-5 days, although he does appear quite comfortable at this time. Consider transition to the Hospice residence v maintaining inpatient comfort measures. Will cont current comfort measures today and reassess tomorrow]
--- NOTE | 2018-05-17 11:41 | CONSULT ---
Subjective Date of Service: 05/17/18 Interval History: Mr. Mccauley is a 48 yo male with PMH significant for metastatic non-small cell lung cancer, and left UE DVT who presented to the emergency room on 05/15/18 and was found to be hypoxic with bilateral infiltrates. He was initially admitted to he ICU on Cefepime in the setting of pancytopenia and presumed sepsis. 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 He has previously been seen by the [facility] wound clinic for the left arm wounds. He has chosen comfort care only at this time. Family History: Unchanged from Admission Social History: Unchanged from Admission Past Medical History: Unchanged from Admission Review of Systems - Measurements Intake and Output: Intake and Output Last 24 Hours 05/15/18 05/16/18 05/17/18 05/18/18 06:59 06:59 06:59 06:59 Intake Total 4040 70 Output Total 1725 410 Balance 2315 -340 Weight 153 lb 7.581 oz Intake: IV Fluids 3605 NS (0.9%) 1025 Medicated IV 245 Heparin 197 cefipime 48 Heparin 120 Oral 70 70 Output: Urine 1725 410 - Review of Systems Constitutional Symptoms: Negative: Fever, Other - Chills Dermatology: Positive: Other - Open skin to the left arm, reports secondary to lung cancer Objective Active Medications: Albuterol/Ipratropium (Duoneb (Albuterol 2.5 Mg/Ipratropium 0.5 Mg)) 2 neb INH Q20M PRN Reason: SHORTNESS OF BREATH Gabapentin (Neurontin Cap(*)) 900 mg PO TID [facility] Morphine Sulfate (Morphine Product Lister Adult* 5 Mg/Ml) 30 mls @ 0 mls/hr TILE GRINDER .change Q24H [facility]; Protocol Nicotine (Nicotine Patch 21 Mg/24 Hr*) 1 patch TRANSDERM DAILY@0800 [facility] Nystatin (Nystatin Suspension*) 500,000 units PO QID [facility] Vital Signs - 8 hr 05/17/18 05/17/18 05/17/18 05:23 06:58 09:00 Respiratory 20 20 20 Rate Appearance: NAD, sitting up in bed Extremities: - - Left upper extremity edema Skin: - - See Skin assessment below Neurological: Alert and Oriented x 3 Result Diagrams: 05/16/18 18:01 05/16/18 05:30 Microbiology and Other Data: Microbiology 05/15/18 15:00 Aerobic Blood Culture - Final Blood Venous Pseudomonas Aeruginosa Anaerobic Blood Culture - Preliminary No Growth Day 1 05/15/18 11:38 Blood Culture - Preliminary Blood Venous Streptococcus Pneumoniae Pseudomonas Aeruginosa 05/15/18 17:18 Legionella Urinary Antigen - Final Urine Negative Legionella Antigen Streptococcus pneumoniae Ag Screen - Final Positive S. Pneumo Antigen 05/15/18 15:49 Nasal Screen MRSA (PCR) - Final Nasal Mrsa Not Detected 05/15/18 15:21 Influenza Types A,B Antigen - Final Nasal Specimen received for Influenza A/B Molecular testing Skin Deviation Note - Skin Deviation Findings Left forearm - Large area of open skin. Total area of skin involved measures 35 cm x 23 cm x 0.1 cm. Some open areas are more superficial than others. There are also some areas with black eschar near the elbow. Wound Problem/Plan Assessment: Mr. Mccauley is a 48 yo male with PMH significant for metastatic non-small cell lung cancer, and left UE DVT who presented to the emergency room on 05/15/18 and was found to be hypoxic with bilateral infiltrates. He was initially admitted to he ICU on Cefepime in the setting of pancytopenia and presumed sepsis. 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 He has chosen comfort care only at this time. Is Patient a Wound Clinic Patient: Yes Current Treatment: Oil Emulsion gauze and rolled gauze. 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 May also use a compression sleeve to the left arm to assist with reduction of the edema (2) DVT prophylaxis Code(s): OSQ6456 - SNOMED Code(s): 324547202 Comment: ambulation (3) DNR (do not resuscitate) Points of Discussion: Time Spent: Time for this wound consultation was 20 minutes, and 10 minutes was spent with the patient discussing past medical history, and assessing, measuring and photographing wounds. Attending: Tonya Hodges
[2018-05-18] MEDS: Nicotine PATCH 21 MG/24 HR* PATCH TRANSDERM SCH (08:12)
[2018-05-18] MEDS: Nystatin SUSPENSION* 100000 UNITS/ML 5 ML UDC PO SCH (08:13)
[2018-05-18] MEDS: Gabapentin CAP(*) 300 MG PO SCH (08:13)
[2018-05-18] MEDS: Morphine PCA ADULT* 5 MG/ML 30 ML PCA SCH (10:00)
[2018-05-18] MEDS ORDERED: Atropine 1% (ORAL/SL)* 15 ML BTL SL PRN (10:47)
--- NOTE | 2018-05-18 16:42 | DS ---
- Discharge Summary Admission Date: 05/15/18 Discharge Date: 05/18/18, Discharge Diagnosis: 1. Metastatic Non-small Cell Lung Cancer: end of life care 2. Sepsis: secondary to pseudomonas, patient deferred aggressive care after 48 hrs for comfort measures Hospital Course: Please see admission note for full H&P, however briefly, Mr. Mccauley is well known to our service due to his unfortunate diagnosis of advanced cancer most recently treated with Carbo/Taxol/XRT following a delay in starting therapy per patient wishes. He was admitted 04/26-04/28 with a DVT of the left arm related to poor blood flow secondary to obstructing Pancoast tumor and subsequent cellulitis. He improved initially improved with antibiotics; however on 05/15 his family called as they were unable to get him up. He was sent to the ER via EMS where he was found to be hypoxic with marked bilateral Infiltrates. In the ER he was persistently hypotensive and was subsequently admitted to the ICU and empirically started on Cefepime due to pancytopenia and presumed sepsis. On he had improved some, however on 05/17 he requested comfort measures only. He has declined rapidly since, requiring a continuous morphine drip, and becoming minimally responsive as of 05/17 PM. He comfortably surrounded by family 05/18/18 @ 0286.
== END 2018-05-18 16:03 | disposition expired | DRG 720 ==
LOC: ED 10:53 → ICU 13:26 → MED 05-16 16:48
PROVIDERS: ADMIT Internal Medicine Hematology & Oncology; ATTEND Internal Medicine Hematology & Oncology
DX: A41.52 Sepsis due to Pseudomonas (principal); J18.9 Pneumonia, unspecified organism; R65.21 Severe sepsis with septic shock; D61.810 Antineoplastic chemotherapy induced pancytopenia; J96.01 Acute respiratory failure with hypoxia; L03.114 Cellulitis of left upper limb; C79.70 Secondary malignant neoplasm of unspecified adrenal gland; C34.92 Malignant neoplasm of unspecified part of left bronchus or lung; I10 Essential (primary) hypertension; M19.90 Unspecified osteoarthritis, unspecified site; F17.210 Nicotine dependence, cigarettes, uncomplicated; Z66 Do not resuscitate; I89.0 Lymphedema, not elsewhere classified; G89.3 Neoplasm related pain (acute) (chronic); T45.1X5A Adverse effect of antineoplastic and immunosuppressive drugs, initial encounter; Y92.239 Unspecified place in hospital as the place of occurrence of the external cause; Z86.718 Personal history of other venous thrombosis and embolism; Z72.89 Other problems related to lifestyle; Z95.0 Presence of cardiac pacemaker; Z83.6 Family history of other diseases of the respiratory system; Z86.711 Personal history of pulmonary embolism
CPT/HCPCS: 36415; 71045; 80053; 81003; 81015; 82803; 83605; 83735; 83880; 84484; 85025; 85027; 85060; 85610; 85730; 86140; 87040; 87077; 87186; 87205; 87641; 87899; 93005; 99223; 99232; 99238; 99285; A9270-GY; J0692; J1644; J2270; J2543; J3010; J3370; J8540